=== PATIENT | female | born 1950 | race Caucasian/White ===

== ENCOUNTER 2023-05-04 06:34 | Day surgery (SDC) | payer MEDICARE, OTHER, SELFPAY ==
--- NOTE | 2023-05-04 | PATH_ITS ---
[facility] Accession Number: [id number] No. of containers..01 Tissue . 01 Material submitted: . colon - ASCENDING POLYP . 01 Diagnosis: Ascending Colon Polyp: Tubular adenoma. MRV 05/07/2023 1324 Local . 01 Electronically signed: . Markus Raman MD, PhD, Pathologist NPI- [id number] . 01 Gross description: . ASCENDING POLYP: Received in formalin is 1 fragment(s) of gonzalez, soft tissue measuring 0.5 x 0.2 x 0.2 cm submitted entirely in 1 cassette(s) /BRI 05/05/2023 1905 Local . 01 Pathologist provided ICD-10: D12.2 . 01 CPT . 743372 Specimen Comment: A courtesy copy of this report has been sent to [phone] Performed at: 01 [facility] [address] [place] [address], [place], [place] [id number] MD Donaldo Mitchell MD Phone: [phone]
[2023-05-04 07:04] VITALS: BMI 35.5
[2023-05-04 07:09] VITALS: BP 157/92; PULSE 74; RESP 17; TEMP 36.9; O2SAT 97
[2023-05-04] MEDS: LACTATED RINGERS 1,000 ML 42 ML IV (07:21)
--- NOTE | 2023-05-04 07:46 | PM.HP.1 ---
History of Present Illness History of Present Illness Date Patient Seen: 05/04/23 Time Patient Seen: 07:46 Chief complaint: Screening Colonoscopy Narrative: 72-year-old woman with a personal history of colonic polyps here for screening colonoscopy. Last colonoscopy 4 years ago. No family history of intestinal malignancy. Abdominal pain unintentional weight loss blood per rectum. [facility] Surgical History (Updated 05/04/23 @ 07:03 by Rashawn Escalona RN) Hx of LASIK History of hernia repair Social History household members: spouse Smoking Status: Never smoker alcohol intake: never Meds Home Medications and Allergies Home Medications Medication Instructions Recorded Confirmed Type sodium,potassium,mag sulfates 17.5 See Rx Instructions PO .COMPLEX 03/25/23 05/04/23 Rx gram-3.13 gram-1.6 gram oral soln #354 mL (Suprep Bowel Prep Kit) levothyroxine 75 mcg tablet 75 mcg PO QAM 05/04/23 05/04/23 History losartan 100 1 tab PO DAILY 05/04/23 05/04/23 History mg-hydrochlorothiazide 12.5 mg tablet minocycline 100 mg capsule 100 mg PO DAILY PRN Rash 05/04/23 05/04/23 History pravastatin 40 mg tablet 40 mg PO ONCE PM 05/04/23 05/04/23 History Allergies Allergy/AdvReac Type Severity Reaction Status Date / Time No Known Drug Allergies Allergy Verified 05/04/23 07:00 Exam Vital Signs (past 8 hours): - 05/04/23 07:09 Temperature 98.4 F Pulse Rate 74 Respiratory Rate 17 Blood Pressure 157/92 H Pulse Oximetry 97 Oxygen Delivery Method Room Air Oxygen Delivery Method Room Air Narrative Exam Narrative: General adult woman alert oriented no acute distress Assessment & Plan Assessment and plan (1) Personal history of colonic polyps: Status: Acute Assessment & Plan narrative: The patient requires colorectal screening and colonoscopy is recommended. Technical details were discussed. Risks, benefits, alternatives explained. Risks including but not limited to myocardial infarction, aspiration, bleeding, pain, missed lesion, incomplete examination, need for further radiographic studies, colonic perforation, and need for major abdominal surgery were discussed. All questions were answered to their satisfaction, and they are in agreement with this plan.
[2023-05-04 08:09] VITALS: BP 110/54; PULSE 70; RESP 16; TEMP 36.7; O2SAT 99
[2023-05-04 08:14] VITALS: BP 114/54; PULSE 67; RESP 14; O2SAT 96
--- NOTE | 2023-05-04 08:14 | PM.OP.COLON ---
Operative Date/Time/Diagnoses Date of procedure: 05/04/23 Time of procedure: 08:14 Pre-op diagnosis: Personal history of colonic polyps Post-op diagnosis: other (Colonic polyp x1) Procedure & Clinicians Study performed: Colonoscopy and polypectomy Same procedure as scheduled: Yes Indications: Personal history of colonic polyps. Colorectal screening Surgeon: Sixto Lee Procedure Notes Procedure in detail: The history and physical was performed/updated and the patient is ASA class is 2. The procedure was discussed in detail with the patient. Potential risks complications including infection, bleeding, missed diagnosis, perforation, need for surgery, and were explained. Their questions were answered and informed consent was obtained. Patient was brought to the procedure room and placed standard monitoring equipment. The patient's vital signs were monitored continuously throughout the entire procedure. Prior to starting time-out was performed. The patient was placed in the left lateral recumbent position. Procedural sedation was administered by anesthesia. Examination began with a thorough inspection of the perianal area there was no evidence of fissures, fistulae, external hemorrhoids or cutaneous malignancy. The colonoscopy scope was then placed into the anal canal and was advanced to the cecum, which was identified by the ileocecal valve, the appendiceal orifice and the confluence of the taenia. The scope was then slowly withdrawn examining colon thoroughly in all directions, irrigating it of any residual stool. Ascending colon-5 mm polyp removed with Jumbo forceps Descending colon mild diverticulosis The patient tolerated the procedure well. They will be discharged once criteria are met. The prep was of good/excellent quality. The withdrawl time was 6 minutes. Specimen(s): other (Ascending colon polyp) Impression: Colonic polyp x1 Post-procedure Plan for aftercare: Likely no further colonoscopy necessary unless symptomatic Disposition: same day surgery
[2023-05-04 08:20] VITALS: BP 119/80; PULSE 72; RESP 19; TEMP 36.2; O2SAT 97
== END 2023-05-04 08:44 | disposition home or self-care (01) ==
PROVIDERS: PCP Family Medicine; Referring Provider Surgery; Visit Provider Surgery
PROC: 0DJD8ZZ Inspection of Lower Intestinal Tract, Via Natural or Artificial Opening Endoscopic (ICD-10-PCS; CPT 45378; principal; 2023-05-04 07:45)
DX: Z12.11 Encounter for screening for malignant neoplasm of colon (principal); Z86.010 Personal history of colon polyps; K57.30 Diverticulosis of large intestine without perforation or abscess without bleeding; D12.2 Benign neoplasm of ascending colon
CPT/HCPCS: 45380; J2704